=== PATIENT | male | born 1960 | race Caucasian/White ===

== ENCOUNTER 2021-06-26 09:09 | Emergency (ER) | payer BC ==
[~2021-06-26] VITALS: Ht 175.3 cm; Wt 121.8 kg
[2021-06-26 09:24] VITALS: TEMP 98.6
[2021-06-26 10:16] VITALS: BP 133/75; PULSE 73
== END 2021-06-26 10:16 | disposition home or self-care (01) ==
LOC: COL.ER 09:09
DX: I10 Essential (primary) hypertension (principal); E11.9 Type 2 diabetes mellitus without complications

== ENCOUNTER → 2022-05-08 | Outpatient (CLI) | payer BC | LOC: MHCPAIN 09:47 | DX: M47.812 Spondylosis without myelopathy or radiculopathy, cervical region (principal); M54.2 Cervicalgia; E11.9 Type 2 diabetes mellitus without complications; Z79.4 Long term (current) use of insulin | CPT/HCPCS: G0463 ==

== ENCOUNTER → 2022-06-14 | Outpatient (CLI) | payer BC ==
[~2022-06-14] MED LIST: ASPIRIN 81M81 MG/TA2 PO; BENICAR HCT 251 TAB PO; CARDURA4 MG PO; NEURONTIN300 MG/CAP PO; NORVASC 10MG10 MG PO; SYNJARDY 12.5-1 EACH PO; TRULICITY0.75 MG/0. SQ; ZETIA 10MG TAB10 MG PO
== END ==
LOC: COL.RAD 15:44
DX: E04.1 Nontoxic single thyroid nodule (principal)

== ENCOUNTER → 2022-06-24 | Outpatient (CLI) | payer BC ==
[~2022-06-24] VITALS: Ht 175.3 cm; Wt 125.3 kg
[2022-06-24 08:28] VITALS: BP 126/82; PULSE 70; TEMP 97.9
[2022-06-24 09:30] VITALS: BP 126/79; PULSE 69
== END ==
LOC: COL.RAD 07:34
DX: E04.1 Nontoxic single thyroid nodule (principal)